=== PATIENT | female | born 1935 | race Caucasian/White ===

== ENCOUNTER 2016-11-30 14:21 | Inpatient (IN) | payer OTHER ==
[~2016-11-30] VITALS: Ht 157.5 cm; Wt 96.7 kg
[~2016-11-30 14:21] MED LIST: ACIDOPHILUS1 CA2 PO; ALBUD INH; AMITRIPTYLINE25 M1 PO; ANTIVERT/2525 MG PO; APAP/HYDROCODON1 T13 PO; ASPIR 8181 MG PO; ASPIR-LOW81 M1 PO; ATIVAN0.5 M1 PO; ATRUD INH; BACDS PO; BACLOFEN10 MG PO; BISOPROLOL/HCTZ1 TA1 PO; CALCIUM PO; CAR1 PO; CAR30 PO; CAR60 NG; CARAFATE1 GM PO; CAT0.1 PO; COL100 PO; DILTIAZEM30 M1 PO; DILTIAZEM60 M1 PO; ENDOCET1 TA4; FERRALET 901 TAB PO; FERROUS SULFAT325 M2 PO; FOL1 PO; FOLIC ACID1 MG PO; GABAPENTIN100 M2 PO; GENTAMICIN80 MG/101 IV; HYD25 PO; HYDRALAZINE HYD10 M1 PO; HYDROCODONE ACETA; IPRATROPIUM BROM3 M2 HHN; IPRATROPIUM BROM3 M2 INH; IRON SULFATE PO; K10 PO; KLOR-CON M2020 MEQ PO; LAC PO; LAC30L PO; LASIX40 MG PO; LEV500 PO; LEVOTHYROXIN0.025 M2 PO; LEVOTHYROXIN0.175 MG PO; LEVOTHYROXINE0.15 M2 PO; LIO10 PO; LIPI10 PO; LIPITOR80 MG PO; LISINOPRIL10 MG PO; LOP50 PO; LOSARTAN POTASS50 M1 PO; MAG PO; MAGNESIUM OXID400 MG PO; MELOXICAM15 M1 PO; MEROPENEM500 MG IV; METFORMIN HCL850 MG PO; METOPROLOL SUCC25 M1 PO; METOPROLOL TART25 M1 PO; MIRUD PO; MOR2I IV; MP PO; NEU300 PO; NORCO1 TA2 PO; OMEPRAZOLE DR20 M1 PO; PANTOPRAZOLE SO40 M1 PO; PHE25 PO; PHE25I IV; POTASSIUM CHLO20 ME1 PO; PRI20 PO; PRO40 PO; PROTONIX40 MG PO; PULMICORT0.5 MG/2 M IH; PULMICORT0.5 MG/2 M NEB; REGLAN10 MG PO; ROBDML PO; ROBL; SOD1 PO; SYN1 PO; SYN125 PO; THERAGRAN-M1 TA4 PO; TOP50 PO; TRE400 PO; TYL325 PO; ULT50 PO; XAN25 PO; XAN5 PO; XANAX0.5 MG PO; XARELTO10 M1 PO; XARELTO15 M1 PO; XOP1.25 HHN; XOPENEX1.25 MG/3 IH; ZOC20 PO; ZOCOR20 MG PO; ZOF4; ZOF4 PO; ZOFI IV; ZOS3I IV; ZOS3PM IV; [UNRECOGNIZED DRUG - CODE] PO
[2016-11-30 15:15] LABS: BASOPHIL % 0.2 % (0-2); PLATELET COUNT 184 x10^3mcL (130-400)
[2016-11-30] MEDS ORDERED: DILTIAZEM HCL120 M2 PO (15:15)
[2016-11-30] MEDS ORDERED: PRE20 PO (15:15)
[2016-11-30] MEDS ORDERED: LASIX20 MG PO (15:15)
[2016-11-30] MEDS ORDERED: MECLIZINE HYDRO25 M1 PO (15:16)
[2016-11-30] MEDS ORDERED: LAXATIVE5 MG PO (15:16)
[2016-11-30 15:27] LABS: CARBON DIOXIDE 39.5 mmol/L (21-32); CHLORIDE SERUM 96 mmol/L (98-107); CREATININE SERUM 0.8 mg/dL (0.6-1.0); GLUCOSE SERUM 157 mg/dL (74-106); POTASSIUM SERUM 3.6 mmol/L (3.5-5.1); RED CELL DISTRIBUTION WIDTH 17.7 % (11.5-14.5); SODIUM SERUM 138 mmol/L (136-145)
[2016-11-30 15:30] LABS: ALBUMIN 3.4 g/dL (3.4-5.0); ALKALINE PHOSPHATASE 87 U/L (46-116); ALT/SGPT 79 U/L (14-59); AST/SGOT 28 U/L (15-37); BILIRUBIN TOTAL 0.5 mg/dL (0.20-1.00); LIPASE 104 IU/L (73-393); TOTAL PROTEIN, SERUM 6.8 g/dL (6.4-8.2)
[2016-11-30 17:45] LABS: PHOSPHOROUS 3.9 mg/dL (2.5-4.9)
[2016-11-30 17:48] LABS: CHOLESTEROL/HDL RATIO 1.7
[2016-11-30 17:55] LABS: T3 TOTAL 0.48 ng/mL
[2016-11-30 18:00] LABS: FREE T4 0.99 ng/dL (0.76-1.46); FREE THYROXINE INDEX 2.2 ug/dL (1.4-4.5)
[2016-11-30 18:28] VITALS: BP 162/90
[2016-11-30 19:40] VITALS: BP 157/99
[2016-11-30 20:29] VITALS: BP 157/99
[2016-12-01 00:07] LABS: microscopic required? YES; urine erythrocyte TRACE (NEGATIVE)
[2016-12-01 04:45] VITALS: BP 185/105
[2016-12-01 06:23] VITALS: BP 157/94
[2016-12-01 08:00] VITALS: BP 150/103
[2016-12-01 08:25] LABS: PLATELET COUNT 181 x10^3mcL (130-400)
[2016-12-01 08:40] LABS: BASOPHIL % 0 % (0-2); RED CELL DISTRIBUTION WIDTH 17.9 % (11.5-14.5)
[2016-12-01 09:22] LABS: CALCIUM 7.9 mg/dL (8.5-10.1); CARBON DIOXIDE 38.1 mmol/L (21-32); CHLORIDE SERUM 91 mmol/L (98-107); CREATININE SERUM 0.7 mg/dL (0.6-1.0); GLUCOSE SERUM 139 mg/dL (74-106); MAGNESIUM 1.6 mg/dL (1.8-2.4); PHOSPHOROUS 4.9 mg/dL (2.5-4.9); POTASSIUM SERUM 3.7 mmol/L (3.5-5.1); SODIUM SERUM 136 mmol/L (136-145)
[2016-12-01 13:10] VITALS: BP 116/70
[2016-12-01 16:36] VITALS: Ht 157.5 cm; Wt 96.7 kg
[2016-12-01 18:19] VITALS: BP 120/70
[2016-12-01 21:09] VITALS: BP 157/84
[2016-12-02 06:00] LABS: PLATELET COUNT 164 x10^3mcL (130-400)
[2016-12-02 06:13] VITALS: BP 151/90
[2016-12-02 06:18] LABS: CALCIUM 7.7 mg/dL (8.5-10.1); CARBON DIOXIDE 39.5 mmol/L (21-32); CHLORIDE SERUM 93 mmol/L (98-107); CREATININE SERUM 0.8 mg/dL (0.6-1.0); GLUCOSE SERUM 110 mg/dL (74-106); MAGNESIUM 2.1 mg/dL (1.8-2.4); PHOSPHOROUS 4.6 mg/dL (2.5-4.9); POTASSIUM SERUM 3.9 mmol/L (3.5-5.1); SODIUM SERUM 135 mmol/L (136-145)
[2016-12-02 06:26] LABS: RED CELL DISTRIBUTION WIDTH 17.7 % (11.5-14.5)
[2016-12-02 08:29] LABS: BAND NEUTROPHIL 2 % (0-10); BASOPHIL 0 % (0-2); MONOCYTE 18 % (0-7); SEGMENTED NEUTROPHILS 69 % (37-75)
[2016-12-02 08:30] LABS: rbc morphology (normal/abnorm) ABNORMAL (NORMAL)
[2016-12-02 09:58] VITALS: BP 123/80
[2016-12-02 13:36] VITALS: BP 105/66
[2016-12-02 17:02] VITALS: BP 127/81
[2016-12-02 21:23] VITALS: BP 121/61
[2016-12-03 06:11] VITALS: BP 103/59
[2016-12-03 09:16] VITALS: BP 92/45
[2016-12-03 13:38] VITALS: BP 96/51
[2016-12-03 17:37] VITALS: BP 89/47
[2016-12-03 19:00] VITALS: BP 117/74
[2016-12-03 21:41] VITALS: BP 130/52
[2016-12-04 05:42] VITALS: BP 98/60
[2016-12-04 06:34] LABS: PLATELET COUNT 134 x10^3mcL (130-400)
[2016-12-04 06:47] LABS: BASOPHIL % 0 % (0-2); RED CELL DISTRIBUTION WIDTH 17.8 % (11.5-14.5)
[2016-12-04 06:50] LABS: CALCIUM 7.8 mg/dL (8.5-10.1); CARBON DIOXIDE 35.5 mmol/L (21-32); CHLORIDE SERUM 93 mmol/L (98-107); CREATININE SERUM 0.7 mg/dL (0.6-1.0); GLUCOSE SERUM 94 mg/dL (74-106); POTASSIUM SERUM 3.6 mmol/L (3.5-5.1); SODIUM SERUM 135 mmol/L (136-145)
[2016-12-04 09:58] VITALS: BP 113/50
[2016-12-04 11:31] VITALS: BP 113/50
[2016-12-04] MEDS ORDERED: LEVAQUIN750 MG PO (11:33)
[2016-12-04] MEDS ORDERED: CLINDAMYCIN HC300 MG PO (11:34)
[2016-12-04] MEDS ORDERED: BACO TOP (11:35)
[2016-12-04] MEDS ORDERED: HIBICLENS118 ML TOP (11:35)
[2016-12-04] MEDS ORDERED: XARELTO15 M1 PO (11:36)
[2016-12-04] MEDS ORDERED: LAC PO (11:36)
[2016-12-04] MEDS ORDERED: MAC100 PO (11:38)
[2016-12-04 11:39] VITALS: BP 113/50
[2016-12-04 11:49] VITALS: BP 113/50
== END 2016-12-04 13:15 | disposition home health service (06) | DRG 177 ==
LOC: ED 14:21 → DU 17:12
PROVIDERS: Emergency Medicine; Family Medicine; ADMIT Family Medicine
DX: J69.0 Pneumonitis due to inhalation of food and vomit (principal); N17.0 Acute kidney failure with tubular necrosis; N39.0 Urinary tract infection, site not specified; I42.9 Cardiomyopathy, unspecified; I48.92 Unspecified atrial flutter; I48.2 Chronic atrial fibrillation; F41.8 Other specified anxiety disorders; E03.9 Hypothyroidism, unspecified; K21.9 Gastro-esophageal reflux disease without esophagitis; M06.9 Rheumatoid arthritis, unspecified; M19.90 Unspecified osteoarthritis, unspecified site; I27.2 Other secondary pulmonary hypertension; E66.9 Obesity, unspecified; E78.5 Hyperlipidemia, unspecified; G89.29 Other chronic pain; M54.6 Pain in thoracic spine; M54.5 Low back pain; Z99.3 Dependence on wheelchair; Z68.39 Body mass index [BMI] 39.0-39.9, adult; I73.9 Peripheral vascular disease, unspecified; K27.9 Peptic ulcer, site unspecified, unspecified as acute or chronic, without hemorrhage or perforation
CPT/HCPCS: 83880; 84439; 97110-GP; J0696; J1644; J1940; J1956; J2270; J2405; J2920; J3490; J7030; J7620; J7633; J8597; Q0092

== ENCOUNTER 2017-01-03 14:24 | Inpatient (IN) | payer OTHER ==
[~2017-01-03] VITALS: Ht 152.4 cm; Wt 103.4 kg
[~2017-01-03 14:24] MED LIST changes: +BACO TOP; +CLINDAMYCIN HC300 MG PO; +DILTIAZEM HCL120 M2 PO; +HIBICLENS118 ML TOP; +LASIX20 MG PO; +LAXATIVE5 MG PO; +LEVAQUIN750 MG PO; +MAC100 PO; +MECLIZINE HYDRO25 M1 PO; +PRE20 PO
[2017-01-03 15:38] LABS: CALCIUM 7.6 mg/dL (8.5-10.1); CARBON DIOXIDE 37.6 mmol/L (21-32); CHLORIDE SERUM 95 mmol/L (98-107); CREATININE SERUM 0.6 mg/dL (0.6-1.0); GLUCOSE SERUM 90 mg/dL (74-106); POTASSIUM SERUM 3.4 mmol/L (3.5-5.1); SODIUM SERUM 139 mmol/L (136-145)
[2017-01-03 15:42] LABS: ALKALINE PHOSPHATASE 125 U/L (46-116); ALT/SGPT 23 U/L (14-59); AST/SGOT 30 U/L (15-37); BILIRUBIN TOTAL 0.4 mg/dL (0.20-1.00); TOTAL PROTEIN, SERUM 6.2 g/dL (6.4-8.2)
[2017-01-03 15:45] LABS: ALBUMIN 2.6 g/dL (3.4-5.0)
[2017-01-03 15:48] LABS: PLATELET COUNT 205 x10^3mcL (130-400); RED CELL DISTRIBUTION WIDTH 17.6 % (11.5-14.5)
[2017-01-03 16:14] LABS: BAND NEUTROPHIL 0 % (0-10); BASOPHIL 0 % (0-2); MONOCYTE 27 % (0-7)
[2017-01-03 16:16] LABS: PLATELET MORPHOLOGY PLATELETS NORMAL; SEGMENTED NEUTROPHILS 56 % (37-75)
[2017-01-03 16:18] LABS: PATH REVIEW for HEMA YES
[2017-01-03 16:45] LABS: T4(THYROXINE) 7.3 ug/dL (4.7-13.3)
[2017-01-03 17:46] VITALS: BP 133/86
[2017-01-03 18:02] LABS: microscopic required? YES; urine erythrocyte 3+ (NEGATIVE)
[2017-01-03 18:07] VITALS: BP 141/99
[2017-01-03 18:22] LABS: AMYLASE 46 U/L (25-115); LIPASE 67 IU/L (73-393)
[2017-01-03 22:56] VITALS: BP 139/90
[2017-01-04 06:12] LABS: PLATELET COUNT 168 x10^3mcL (130-400)
[2017-01-04 06:51] LABS: CALCIUM 7.6 mg/dL (8.5-10.1); CARBON DIOXIDE 31.4 mmol/L (21-32); CHLORIDE SERUM 101 mmol/L (98-107); CREATININE SERUM 0.5 mg/dL (0.6-1.0); GLUCOSE SERUM 88 mg/dL (74-106); MAGNESIUM 1.5 mg/dL (1.8-2.4); PHOSPHOROUS 4.7 mg/dL (2.5-4.9); POTASSIUM SERUM 3.7 mmol/L (3.5-5.1); SODIUM SERUM 140 mmol/L (136-145)
[2017-01-04 06:56] VITALS: BP 136/90
[2017-01-04 07:13] LABS: RED CELL DISTRIBUTION WIDTH 17.3 % (11.5-14.5)
[2017-01-04 07:55] VITALS: BP 136/91
[2017-01-04 09:00] VITALS: BP 136/91
[2017-01-04 10:30] LABS: BAND NEUTROPHIL 2 % (0-10); BASOPHIL 0 % (0-2); MONOCYTE 26 % (0-7); SEGMENTED NEUTROPHILS 49 % (37-75)
[2017-01-04 10:32] LABS: rbc morphology (normal/abnorm) ABNORMAL (NORMAL)
[2017-01-04 16:13] VITALS: BP 127/82
[2017-01-04 22:12] VITALS: BP 124/67
[2017-01-05 06:18] VITALS: BP 108/66
[2017-01-05 06:20] LABS: PLATELET COUNT 172 x10^3mcL (130-400)
[2017-01-05 06:27] LABS: CALCIUM 7.8 mg/dL (8.5-10.1); CARBON DIOXIDE 36.4 mmol/L (21-32); CHLORIDE SERUM 99 mmol/L (98-107); CREATININE SERUM 0.6 mg/dL (0.6-1.0); GLUCOSE SERUM 89 mg/dL (74-106); MAGNESIUM 1.5 mg/dL (1.8-2.4); PHOSPHOROUS 4.6 mg/dL (2.5-4.9); POTASSIUM SERUM 3.1 mmol/L (3.5-5.1); SODIUM SERUM 141 mmol/L (136-145)
[2017-01-05 06:29] LABS: RED CELL DISTRIBUTION WIDTH 16.9 % (11.5-14.5)
[2017-01-05 07:23] LABS: BAND NEUTROPHIL 1 % (0-10); MONOCYTE 29 % (0-7); SEGMENTED NEUTROPHILS 54 % (37-75); rbc morphology (normal/abnorm) NORMAL (NORMAL)
[2017-01-05 14:00] VITALS: BP 117/65
[2017-01-05 17:27] VITALS: BP 115/74
[2017-01-05 21:58] VITALS: BP 120/74
[2017-01-06 06:02] VITALS: BP 108/70
[2017-01-06 06:25] LABS: PLATELET COUNT 172 x10^3mcL (130-400)
[2017-01-06 06:30] LABS: CALCIUM 8.1 mg/dL (8.5-10.1); CHLORIDE SERUM 98 mmol/L (98-107); CREATININE SERUM 0.5 mg/dL (0.6-1.0); GLUCOSE SERUM 95 mg/dL (74-106); MAGNESIUM 1.9 mg/dL (1.8-2.4); PHOSPHOROUS 4.1 mg/dL (2.5-4.9); SODIUM SERUM 140 mmol/L (136-145)
[2017-01-06 07:32] LABS: RED CELL DISTRIBUTION WIDTH 16.7 % (11.5-14.5)
[2017-01-06 08:47] LABS: BAND NEUTROPHIL 0 % (0-10); BASOPHIL 0 % (0-2); SEGMENTED NEUTROPHILS 50 % (37-75)
[2017-01-06 08:49] LABS: MONOCYTE 27 % (0-7)
[2017-01-06 08:52] LABS: rbc morphology (normal/abnorm) ABNORMAL (NORMAL)
[2017-01-06 09:18] VITALS: Ht 152.4 cm; Wt 103.4 kg
[2017-01-06 09:23] VITALS: BP 94/64
[2017-01-06 14:45] VITALS: BP 116/73
[2017-01-06 17:35] VITALS: BP 122/70
[2017-01-06 18:12] VITALS: BP 122/70
[2017-01-06 22:41] VITALS: BP 111/59
[2017-01-07 05:40] VITALS: BP 96/55
[2017-01-07 10:06] VITALS: BP 143/57
[2017-01-07 12:54] LABS: PLATELET COUNT 177 x10^3mcL (130-400)
[2017-01-07 12:58] LABS: RED CELL DISTRIBUTION WIDTH 15.9 % (11.5-14.5)
[2017-01-07 13:01] LABS: CALCIUM 8.6 mg/dL (8.5-10.1); CARBON DIOXIDE 35.1 mmol/L (21-32); CHLORIDE SERUM 97 mmol/L (98-107); CREATININE SERUM 0.6 mg/dL (0.6-1.0); GLUCOSE SERUM 108 mg/dL (74-106); MAGNESIUM 1.7 mg/dL (1.8-2.4); PHOSPHOROUS 4.6 mg/dL (2.5-4.9); SODIUM SERUM 137 mmol/L (136-145)
[2017-01-07 13:05] LABS: POTASSIUM SERUM 2.8 mmol/L (3.5-5.1)
[2017-01-07 13:09] LABS: BAND NEUTROPHIL 0 % (0-10); BASOPHIL 0 % (0-2); MONOCYTE 20 % (0-7); SEGMENTED NEUTROPHILS 57 % (37-75)
[2017-01-07 13:10] LABS: rbc morphology (normal/abnorm) ABNORMAL (NORMAL)
[2017-01-07 14:02] VITALS: BP 114/69
[2017-01-07 21:04] VITALS: BP 115/61
[2017-01-08 06:20] VITALS: BP 112/68
[2017-01-08 06:51] LABS: PLATELET COUNT 158 x10^3mcL (130-400)
[2017-01-08 07:04] LABS: RED CELL DISTRIBUTION WIDTH 15.9 % (11.5-14.5)
[2017-01-08 07:13] LABS: CALCIUM 8.2 mg/dL (8.5-10.1); CARBON DIOXIDE 31.8 mmol/L (21-32); CHLORIDE SERUM 98 mmol/L (98-107); CREATININE SERUM 0.6 mg/dL (0.6-1.0); GLUCOSE SERUM 101 mg/dL (74-106); MAGNESIUM 2.1 mg/dL (1.8-2.4); PHOSPHOROUS 4.6 mg/dL (2.5-4.9); POTASSIUM SERUM 3.4 mmol/L (3.5-5.1); SODIUM SERUM 138 mmol/L (136-145)
[2017-01-08 08:58] VITALS: BP 118/76
[2017-01-08 10:20] LABS: BAND NEUTROPHIL 0 % (0-10); BASOPHIL 0 % (0-2); MONOCYTE 20 % (0-7); SEGMENTED NEUTROPHILS 54 % (37-75); rbc morphology (normal/abnorm) ABNORMAL (NORMAL)
[2017-01-08 12:58] VITALS: BP 109/68
[2017-01-08] MEDS ORDERED: BEN25 PO (14:16)
[2017-01-08] MEDS ORDERED: BACDS PO (14:18)
[2017-01-08] MEDS ORDERED: LEVAQUIN750 MG PO (14:18)
[2017-01-08] MEDS ORDERED: ECO81 PO (14:19)
[2017-01-08] MEDS ORDERED: SIN25 PO (14:20)
[2017-01-08] MEDS ORDERED: LAC PO (14:21)
[2017-01-08] MEDS ORDERED: MYCC TOP (14:23)
[2017-01-08 14:29] VITALS: BP 109/68
== END 2017-01-08 16:26 | disposition home health service (06) | DRG 190 ==
LOC: ED 14:24 → DU 16:23
PROVIDERS: Emergency Medicine; Family Medicine; ADMIT Family Medicine
DX: J44.1 Chronic obstructive pulmonary disease with (acute) exacerbation (principal); N17.0 Acute kidney failure with tubular necrosis; E43 Unspecified severe protein-calorie malnutrition; J96.20 Acute and chronic respiratory failure, unspecified whether with hypoxia or hypercapnia; I50.43 Acute on chronic combined systolic (congestive) and diastolic (congestive) heart failure; R53.2 Functional quadriplegia; Z68.41 Body mass index [BMI] 40.0-44.9, adult; N39.0 Urinary tract infection, site not specified; L03.211 Cellulitis of face; I42.9 Cardiomyopathy, unspecified; M94.0 Chondrocostal junction syndrome [Tietze]; K21.9 Gastro-esophageal reflux disease without esophagitis; B96.1 Klebsiella pneumoniae [K. pneumoniae] as the cause of diseases classified elsewhere; I27.2 Other secondary pulmonary hypertension; Z16.24 Resistance to multiple antibiotics; E83.51 Hypocalcemia; E03.9 Hypothyroidism, unspecified; E66.01 Morbid (severe) obesity due to excess calories; E78.5 Hyperlipidemia, unspecified; E86.0 Dehydration; I48.2 Chronic atrial fibrillation; F41.8 Other specified anxiety disorders; M19.90 Unspecified osteoarthritis, unspecified site; M06.9 Rheumatoid arthritis, unspecified; Z99.3 Dependence on wheelchair; Z99.81 Dependence on supplemental oxygen; Z79.01 Long term (current) use of anticoagulants
CPT/HCPCS: 83880; 85060; J1885; J1940; J1956; J3475; J3480; J7030; J7050; J7620; J7626; Q0092; Q0163

== ENCOUNTER 2017-01-25 09:22 | Inpatient (IN) | payer OTHER ==
[~2017-01-25] VITALS: Ht 2.5 cm; Wt 103.0 kg
[~2017-01-25 09:22] MED LIST changes: +BEN25 PO; +ECO81 PO; +MYCC TOP; +SIN25 PO
[2017-01-25] MEDS ORDERED: CARDIZEM30 MG PO (09:54)
[2017-01-25] MEDS ORDERED: MECLIZINE HYDRO25 M1 PO (09:57)
[2017-01-25] MEDS ORDERED: WAL-DRYL25 MG PO (09:58)
[2017-01-25] MEDS ORDERED: METOPROLOL TART25 M1 PO (09:59)
[2017-01-25] MEDS ORDERED: FERROUS SULFAT325 M2 PO (10:10)
[2017-01-25 10:28] LABS: RED CELL DISTRIBUTION WIDTH 14.2 % (11.5-14.5)
[2017-01-25 10:48] LABS: CALCIUM 7.4 mg/dL (8.5-10.1); CARBON DIOXIDE 26.7 mmol/L (21-32); CHLORIDE SERUM 95 mmol/L (98-107); CREATININE SERUM 0.7 mg/dL (0.6-1.0); GLUCOSE SERUM 96 mg/dL (74-106); POTASSIUM SERUM 3.8 mmol/L (3.5-5.1); SODIUM SERUM 131 mmol/L (136-145)
[2017-01-25 10:50] LABS: PLATELET COUNT 120 x10^3mcL (130-400)
[2017-01-25 10:53] LABS: ALBUMIN 2.7 g/dL (3.4-5.0); ALKALINE PHOSPHATASE 334 U/L (46-116); ALT/SGPT 449 U/L (14-59); AST/SGOT 717 U/L (15-37); TOTAL PROTEIN, SERUM 5.8 g/dL (6.4-8.2)
[2017-01-25 11:18] LABS: BAND NEUTROPHIL 16 % (0-10); BASOPHIL 0 % (0-2); MONOCYTE 10 % (0-7); MYELOCYTE 1 % (0-2); SEGMENTED NEUTROPHILS 72 % (37-75)
[2017-01-25 11:19] LABS: PLATELET MORPHOLOGY PLATELETS DECREASED; rbc morphology (normal/abnorm) ABNORMAL (NORMAL)
[2017-01-25 11:47] LABS: UA SPECIFIC GRAVITY <=1.005 (1.005-1.035); microscopic required? YES; urine erythrocyte 3+ (NEGATIVE)
[2017-01-25 12:42] LABS: MAGNESIUM 1.4 mg/dL (1.8-2.4); PHOSPHOROUS 3.3 mg/dL (2.5-4.9)
[2017-01-25 12:43] LABS: CHOLESTEROL/HDL RATIO 1.3
[2017-01-25 12:52] LABS: FREE T4 1.25 ng/dL (0.76-1.46); FREE THYROXINE INDEX 2.4 ug/dL (1.4-4.5); T4(THYROXINE) 6.5 ug/dL (4.7-13.3)
[2017-01-25 12:56] LABS: T3 TOTAL 0.52 ng/mL
[2017-01-25 13:39] VITALS: BP 104/50
[2017-01-25] MEDS ORDERED: METOPROLOL SUCC25 M2 PO (14:31)
[2017-01-25 17:09] VITALS: BP 104/50
[2017-01-25 17:39] VITALS: BP 102/43
[2017-01-25 21:18] VITALS: BP 119/55
[2017-01-26 05:39] VITALS: BP 113/63
[2017-01-26 06:20] LABS: ALKALINE PHOSPHATASE 260 U/L (46-116); ALT/SGPT 278 U/L (14-59); AST/SGOT 310 U/L (15-37); BILIRUBIN DIRECT 1.69 mg/dL (0.0-0.2); BILIRUBIN TOTAL 2.1 mg/dL (0.20-1.00); CARBON DIOXIDE 29.3 mmol/L (21-32); CHLORIDE SERUM 99 mmol/L (98-107); CREATININE SERUM 0.6 mg/dL (0.6-1.0); GLUCOSE SERUM 83 mg/dL (74-106); POTASSIUM SERUM 4.3 mmol/L (3.5-5.1); SODIUM SERUM 132 mmol/L (136-145)
[2017-01-26 06:25] LABS: ALBUMIN 2.5 g/dL (3.4-5.0); TOTAL PROTEIN, SERUM 5.4 g/dL (6.4-8.2)
[2017-01-26 07:21] LABS: PLATELET COUNT 99 x10^3mcL (130-400); RED CELL DISTRIBUTION WIDTH 14.7 % (11.5-14.5)
[2017-01-26 08:50] LABS: BAND NEUTROPHIL 20 % (0-10); BASOPHIL 0 % (0-2); MONOCYTE 16 % (0-7); SEGMENTED NEUTROPHILS 59 % (37-75); rbc morphology (normal/abnorm) ABNORMAL (NORMAL)
[2017-01-26 08:51] LABS: PLATELET MORPHOLOGY PLATELETS DECREASED
[2017-01-26 09:00] VITALS: BP 129/67
[2017-01-26 12:27] VITALS: BP 136/70
[2017-01-26 18:01] VITALS: BP 112/53
[2017-01-26 22:09] VITALS: BP 117/68
[2017-01-27 05:52] VITALS: BP 121/64
[2017-01-27 05:58] LABS: RED CELL DISTRIBUTION WIDTH 14.4 % (11.5-14.5)
[2017-01-27 06:30] LABS: CARBON DIOXIDE 28.2 mmol/L (21-32); CHLORIDE SERUM 99 mmol/L (98-107); CREATININE SERUM 0.6 mg/dL (0.6-1.0); GLUCOSE SERUM 103 mg/dL (74-106); POTASSIUM SERUM 3.8 mmol/L (3.5-5.1); SODIUM SERUM 134 mmol/L (136-145)
[2017-01-27 07:24] LABS: PLATELET COUNT 104 x10^3mcL (130-400)
[2017-01-27 08:22] LABS: BAND NEUTROPHIL 6 % (0-10); BASOPHIL 0 % (0-2); MONOCYTE 18 % (0-7); SEGMENTED NEUTROPHILS 66 % (37-75)
[2017-01-27 08:24] LABS: PLATELET MORPHOLOGY GIANT PLATELET SEEN; rbc morphology (normal/abnorm) ABNORMAL (NORMAL)
[2017-01-27 09:48] VITALS: BP 105/52
[2017-01-27 17:06] VITALS: BP 124/62
[2017-01-27 21:45] VITALS: BP 131/73
[2017-01-28 06:37] LABS: BASOPHIL % 0.3 % (0-2); RED CELL DISTRIBUTION WIDTH 14.3 % (11.5-14.5)
[2017-01-28 06:54] VITALS: BP 125/59
[2017-01-28 06:56] LABS: PLATELET COUNT 110 x10^3mcL (130-400)
[2017-01-28 06:59] LABS: ALKALINE PHOSPHATASE 224 U/L (46-116); ALT/SGPT 150 U/L (14-59); AST/SGOT 127 U/L (15-37); BILIRUBIN TOTAL 0.8 mg/dL (0.20-1.00); CALCIUM 7.9 mg/dL (8.5-10.1); CARBON DIOXIDE 34.3 mmol/L (21-32); CHLORIDE SERUM 98 mmol/L (98-107); CREATININE SERUM 0.5 mg/dL (0.6-1.0); GLUCOSE SERUM 95 mg/dL (74-106); SODIUM SERUM 138 mmol/L (136-145)
[2017-01-28 07:43] LABS: ALBUMIN 2.2 g/dL (3.4-5.0); POTASSIUM SERUM 2.8 mmol/L (3.5-5.1); TOTAL PROTEIN, SERUM 5.3 g/dL (6.4-8.2)
[2017-01-28 10:15] VITALS: BP 107/59
[2017-01-28 14:19] VITALS: BP 120/64
[2017-01-28 18:41] VITALS: BP 99/42
[2017-01-28 19:30] VITALS: BP 112/60
[2017-01-28 21:53] VITALS: BP 125/72
[2017-01-29 06:14] LABS: BASOPHIL % 0.4 % (0-2)
[2017-01-29 06:43] LABS: PLATELET COUNT 122 x10^3mcL (130-400); RED CELL DISTRIBUTION WIDTH 14.7 % (11.5-14.5)
[2017-01-29 07:01] VITALS: BP 135/65
[2017-01-29 07:09] LABS: CALCIUM 8.1 mg/dL (8.5-10.1); CARBON DIOXIDE 33.6 mmol/L (21-32); CHLORIDE SERUM 101 mmol/L (98-107); CREATININE SERUM 0.4 mg/dL (0.6-1.0); GLUCOSE SERUM 100 mg/dL (74-106); MAGNESIUM 1.3 mg/dL (1.8-2.4); PHOSPHOROUS 2.9 mg/dL (2.5-4.9); POTASSIUM SERUM 3.8 mmol/L (3.5-5.1); SODIUM SERUM 139 mmol/L (136-145)
[2017-01-29 09:46] VITALS: BP 144/76
[2017-01-29 13:52] VITALS: BP 121/68
[2017-01-29 17:33] VITALS: BP 141/75
[2017-01-29 19:30] VITALS: BP 127/61
[2017-01-29 21:24] VITALS: BP 153/76
[2017-01-30 05:49] VITALS: BP 136/62
[2017-01-30 06:23] LABS: RED CELL DISTRIBUTION WIDTH 14.5 % (11.5-14.5)
[2017-01-30 06:50] LABS: CALCIUM 8.4 mg/dL (8.5-10.1); CARBON DIOXIDE 35.4 mmol/L (21-32); CHLORIDE SERUM 97 mmol/L (98-107); CREATININE SERUM 0.5 mg/dL (0.6-1.0); GLUCOSE SERUM 103 mg/dL (74-106); PHOSPHOROUS 2.9 mg/dL (2.5-4.9); POTASSIUM SERUM 3.6 mmol/L (3.5-5.1); SODIUM SERUM 137 mmol/L (136-145)
[2017-01-30 06:54] LABS: PLATELET COUNT 126 x10^3mcL (130-400)
[2017-01-30 08:30] LABS: MAGNESIUM 1.9 mg/dL (1.8-2.4)
[2017-01-30 08:57] LABS: BAND NEUTROPHIL 4 % (0-10); BASOPHIL 0 % (0-2); METAMYELOCTE 1 % (0-2); MONOCYTE 26 % (0-7); MYELOCYTE 2 % (0-2); PLATELET MORPHOLOGY GIANT PLATELET SEEN; SEGMENTED NEUTROPHILS 55 % (37-75); rbc morphology (normal/abnorm) ABNORMAL (NORMAL)
[2017-01-30 09:25] VITALS: BP 135/75
[2017-01-30 18:55] VITALS: BP 142/84
[2017-01-30 22:13] VITALS: BP 142/76
[2017-01-31 06:32] VITALS: BP 133/61
[2017-01-31 06:35] LABS: PLATELET COUNT 140 x10^3mcL (130-400)
[2017-01-31 06:48] LABS: CALCIUM 8.1 mg/dL (8.5-10.1); CARBON DIOXIDE 34.2 mmol/L (21-32); CHLORIDE SERUM 102 mmol/L (98-107); CREATININE SERUM 0.4 mg/dL (0.6-1.0); GLUCOSE SERUM 101 mg/dL (74-106); POTASSIUM SERUM 3.9 mmol/L (3.5-5.1); SODIUM SERUM 141 mmol/L (136-145)
[2017-01-31 07:40] VITALS: BP 129/68
[2017-01-31 07:56] LABS: RED CELL DISTRIBUTION WIDTH 14.7 % (11.5-14.5)
[2017-01-31 09:27] LABS: BILIRUBIN DIRECT 0.28 mg/dL (0.0-0.2); BILIRUBIN TOTAL 0.44 mg/dL (0.20-1.00)
[2017-01-31 09:28] LABS: ALBUMIN 2.2 g/dL (3.4-5.0); TOTAL PROTEIN, SERUM 5.8 g/dL (6.4-8.2)
[2017-01-31 11:07] LABS: BAND NEUTROPHIL 3 % (0-10); BASOPHIL 0 % (0-2); MONOCYTE 13 % (0-7); MYELOCYTE 2 % (0-2); SEGMENTED NEUTROPHILS 70 % (37-75)
[2017-01-31 11:09] LABS: PLATELET MORPHOLOGY PLATELETS DECREASED; rbc morphology (normal/abnorm) ABNORMAL (NORMAL)
[2017-01-31 13:00] VITALS: BP 128/59
[2017-01-31 18:06] VITALS: BP 149/65
[2017-01-31 21:35] VITALS: BP 102/55
[2017-02-01 06:16] LABS: CALCIUM 7.8 mg/dL (8.5-10.1); CHLORIDE SERUM 102 mmol/L (98-107); CREATININE SERUM 0.4 mg/dL (0.6-1.0); GLUCOSE SERUM 98 mg/dL (74-106); POTASSIUM SERUM 3.9 mmol/L (3.5-5.1); SODIUM SERUM 142 mmol/L (136-145)
[2017-02-01 06:21] LABS: PLATELET COUNT 171 x10^3mcL (130-400)
[2017-02-01 06:55] VITALS: BP 111/66
[2017-02-01 07:42] LABS: RED CELL DISTRIBUTION WIDTH 15.4 % (11.5-14.5)
[2017-02-01 09:26] VITALS: BP 118/70
[2017-02-01 10:09] LABS: ATYPICAL LYMPH 1 %; BAND NEUTROPHIL 1 % (0-10); BASOPHIL 0 % (0-2); MONOCYTE 14 % (0-7); SEGMENTED NEUTROPHILS 71 % (37-75)
[2017-02-01 10:10] LABS: rbc morphology (normal/abnorm) ABNORMAL (NORMAL)
[2017-02-01 10:11] LABS: PLATELET MORPHOLOGY PLATELETS DECREASED
[2017-02-01 13:36] VITALS: BP 118/70
[2017-02-01 13:45] VITALS: BP 138/67
[2017-02-01] MEDS ORDERED: NORCO1 TA1 PO (14:03)
[2017-02-01] MEDS ORDERED: CARAFATE1 GM PO (14:03)
[2017-02-01 14:04] VITALS: BP 138/67
[2017-02-01] MEDS ORDERED: FERROUS SULFAT325 M2 PO (14:04)
[2017-02-01] MEDS ORDERED: COL100 PO (14:05)
[2017-02-01] MEDS ORDERED: XARELTO15 M1 PO (14:06)
== END 2017-02-01 17:52 | disposition home health service (06) | DRG 853 ==
LOC: ED 09:22 → MU 12:10 → DU 12:10 → MU 01-30 09:03
PROVIDERS: Emergency Medicine; Family Medicine; Internal Medicine Gastroenterology; ADMIT Family Medicine
PROC: 0FC98ZZ Extirpation of Matter from Common Bile Duct, Via Natural or Artificial Opening Endoscopic (ICD-10-PCS; 2017-01-26)
PROC: 0FC58ZZ Extirpation of Matter from Right Hepatic Duct, Via Natural or Artificial Opening Endoscopic (ICD-10-PCS; 2017-01-26)
PROC: 0FC68ZZ Extirpation of Matter from Left Hepatic Duct, Via Natural or Artificial Opening Endoscopic (ICD-10-PCS; 2017-01-26)
PROC: 0W3P8ZZ Control Bleeding in Gastrointestinal Tract, Via Natural or Artificial Opening Endoscopic (ICD-10-PCS; 2017-01-26 09:30)
PROC: 0F798ZZ Dilation of Common Bile Duct, Via Natural or Artificial Opening Endoscopic (ICD-10-PCS; 2017-01-26 09:30)
PROC: 0F758ZZ Dilation of Right Hepatic Duct, Via Natural or Artificial Opening Endoscopic (ICD-10-PCS; 2017-01-26 09:30)
PROC: 0F768ZZ Dilation of Left Hepatic Duct, Via Natural or Artificial Opening Endoscopic (ICD-10-PCS; 2017-01-26 09:30)
PROC: 0HBMXZZ Excision of Right Foot Skin, External Approach (ICD-10-PCS; principal; 2017-01-28)
PROC: 0HBNXZZ Excision of Left Foot Skin, External Approach (ICD-10-PCS; principal; 2017-01-28)
DX: A41.9 Sepsis, unspecified organism (principal); E43 Unspecified severe protein-calorie malnutrition; N17.0 Acute kidney failure with tubular necrosis; K28.0 Acute gastrojejunal ulcer with hemorrhage; E87.1 Hypo-osmolality and hyponatremia; N39.0 Urinary tract infection, site not specified; K91.86 Retained cholelithiasis following cholecystectomy; I42.0 Dilated cardiomyopathy; Z68.42 Body mass index [BMI] 45.0-49.9, adult; B96.20 Unspecified Escherichia coli [E. coli] as the cause of diseases classified elsewhere; R65.20 Severe sepsis without septic shock; I73.9 Peripheral vascular disease, unspecified; L97.529 Non-pressure chronic ulcer of other part of left foot with unspecified severity; L97.519 Non-pressure chronic ulcer of other part of right foot with unspecified severity; K80.50 Calculus of bile duct without cholangitis or cholecystitis without obstruction; K31.7 Polyp of stomach and duodenum; K29.60 Other gastritis without bleeding; K21.9 Gastro-esophageal reflux disease without esophagitis; I48.2 Chronic atrial fibrillation; I10 Essential (primary) hypertension; M06.9 Rheumatoid arthritis, unspecified; M19.90 Unspecified osteoarthritis, unspecified site; M54.6 Pain in thoracic spine; M54.5 Low back pain; G89.29 Other chronic pain; D53.9 Nutritional anemia, unspecified; F41.9 Anxiety disorder, unspecified; F32.9 Major depressive disorder, single episode, unspecified; E78.5 Hyperlipidemia, unspecified; E89.0 Postprocedural hypothyroidism; E66.01 Morbid (severe) obesity due to excess calories; Z16.12 Extended spectrum beta lactamase (ESBL) resistance; Z16.24 Resistance to multiple antibiotics; Z99.81 Dependence on supplemental oxygen; Z99.3 Dependence on wheelchair
CPT/HCPCS: 43235; 43260; 83880; 84439; 94150; C1769; C9113; J0696; J1170; J1885; J1940; J2185; J2270; J2405; J2543; J2704; J2916; J3475; J3480; J3490; J7030; J7040; J7050; J7120; J7613; J7620; Q0092; Q9967

== ENCOUNTER 2017-02-04 10:42 | Inpatient (IN) | payer OTHER ==
[~2017-02-04] VITALS: Ht 154.9 cm; Wt 98.9 kg
[~2017-02-04 10:42] MED LIST changes: +CARDIZEM30 MG PO; +METOPROLOL SUCC25 M2 PO; +NORCO1 TA1 PO; +WAL-DRYL25 MG PO
[2017-02-04 11:41] LABS: BASOPHIL % 0.2 % (0-2); PLATELET COUNT 245 x10^3mcL (130-400)
[2017-02-04 11:42] LABS: RED CELL DISTRIBUTION WIDTH 17.1 % (11.5-14.5)
[2017-02-04 12:31] LABS: CALCIUM 7.4 mg/dL (8.5-10.1); CARBON DIOXIDE 28.7 mmol/L (21-32); CHLORIDE SERUM 98 mmol/L (98-107); CREATININE SERUM 0.7 mg/dL (0.6-1.0); GLUCOSE SERUM 105 mg/dL (74-106); POTASSIUM SERUM 3.5 mmol/L (3.5-5.1); SODIUM SERUM 137 mmol/L (136-145)
[2017-02-04 12:35] LABS: ALBUMIN 2.6 g/dL (3.4-5.0); ALKALINE PHOSPHATASE 188 U/L (46-116); ALT/SGPT 49 U/L (14-59); AMYLASE 56 U/L (25-115); AST/SGOT 61 U/L (15-37); BILIRUBIN TOTAL 0.38 mg/dL (0.20-1.00); LIPASE 73 IU/L (73-393); TOTAL PROTEIN, SERUM 6.2 g/dL (6.4-8.2)
[2017-02-04 15:05] LABS: BASOPHIL % 0.1 % (0-2); PLATELET COUNT 243 x10^3mcL (130-400)
[2017-02-04 15:07] LABS: RED CELL DISTRIBUTION WIDTH 17.1 % (11.5-14.5)
[2017-02-04 15:55] LABS: UA SPECIFIC GRAVITY 1.015 (1.005-1.035); microscopic required? YES; urine erythrocyte 3+ (NEGATIVE)
[2017-02-04 15:58] VITALS: BP 122/62
[2017-02-04 16:28] LABS: T3 TOTAL 0.87 ng/mL
[2017-02-04 16:58] LABS: FREE T4 1.01 ng/dL (0.76-1.46); FREE THYROXINE INDEX 2.4 ug/dL (1.4-4.5)
[2017-02-04 17:13] LABS: CHOLESTEROL/HDL RATIO 2.6
[2017-02-04 17:51] VITALS: BP 142/49
[2017-02-04 19:26] LABS: BASOPHIL % 0.3 % (0-2); PLATELET COUNT 224 x10^3mcL (130-400)
[2017-02-04 19:30] LABS: RED CELL DISTRIBUTION WIDTH 17.5 % (11.5-14.5)
[2017-02-04 19:38] LABS: CALCIUM 6.9 mg/dL (8.5-10.1); CHLORIDE SERUM 99 mmol/L (98-107); CREATININE SERUM 0.6 mg/dL (0.6-1.0); GLUCOSE SERUM 101 mg/dL (74-106); POTASSIUM SERUM 3.5 mmol/L (3.5-5.1); SODIUM SERUM 137 mmol/L (136-145)
[2017-02-04 19:40] VITALS: BP 118/66
[2017-02-04 23:45] VITALS: BP 101/49
[2017-02-05] VITALS (7 sets, daily range): BP systolic 97–137; BP diastolic 49–77
[2017-02-05 01:00] LABS: PLATELET COUNT 229 x10^3mcL (130-400)
[2017-02-05 01:32] LABS: BAND NEUTROPHIL 5 % (0-10); METAMYELOCTE 8 % (0-2); MONOCYTE 7 % (0-7); MYELOCYTE 2 % (0-2); SEGMENTED NEUTROPHILS 64 % (37-75)
[2017-02-05 01:33] LABS: PLATELET MORPHOLOGY LARGE PLATELET SEEN; rbc morphology (normal/abnorm) ABNORMAL (NORMAL)
[2017-02-05 07:13] LABS: BASOPHIL % 0.5 % (0-2); PLATELET COUNT 230 x10^3mcL (130-400)
[2017-02-05 08:19] LABS: rbc morphology (normal/abnorm) ABNORMAL (NORMAL)
[2017-02-05 18:16] LABS: BASOPHIL % 0.3 % (0-2); PLATELET COUNT 219 x10^3mcL (130-400)
[2017-02-05 18:21] LABS: RED CELL DISTRIBUTION WIDTH 18.4 % (11.5-14.5)
[2017-02-06 03:39] VITALS: BP 101/58
[2017-02-06 05:32] LABS: BASOPHIL % 0.2 % (0-2); PLATELET COUNT 217 x10^3mcL (130-400)
[2017-02-06 05:34] LABS: RED CELL DISTRIBUTION WIDTH 18.1 % (11.5-14.5)
[2017-02-06 05:36] LABS: CALCIUM 6.8 mg/dL (8.5-10.1); CARBON DIOXIDE 31.4 mmol/L (21-32); CHLORIDE SERUM 103 mmol/L (98-107); CREATININE SERUM 0.5 mg/dL (0.6-1.0); GLUCOSE SERUM 106 mg/dL (74-106); MAGNESIUM 1.8 mg/dL (1.8-2.4); PHOSPHOROUS 3.4 mg/dL (2.5-4.9); POTASSIUM SERUM 3.5 mmol/L (3.5-5.1); SODIUM SERUM 140 mmol/L (136-145)
[2017-02-06 07:30] VITALS: Ht 154.9 cm; Wt 98.9 kg
[2017-02-06 08:10] VITALS: BP 94/52
[2017-02-06 11:45] VITALS: BP 114/72
[2017-02-06 17:06] VITALS: BP 107/56
[2017-02-06 20:47] VITALS: BP 101/64
[2017-02-07 06:26] VITALS: BP 112/70
[2017-02-07 07:00] LABS: PLATELET COUNT 202 x10^3mcL (130-400)
[2017-02-07 07:05] LABS: RED CELL DISTRIBUTION WIDTH 18.2 % (11.5-14.5)
[2017-02-07 07:10] LABS: CALCIUM 6.7 mg/dL (8.5-10.1); CARBON DIOXIDE 31.6 mmol/L (21-32); CHLORIDE SERUM 103 mmol/L (98-107); CREATININE SERUM 0.5 mg/dL (0.6-1.0); GLUCOSE SERUM 82 mg/dL (74-106); MAGNESIUM 1.7 mg/dL (1.8-2.4); PHOSPHOROUS 3.1 mg/dL (2.5-4.9); POTASSIUM SERUM 3.3 mmol/L (3.5-5.1); SODIUM SERUM 138 mmol/L (136-145)
[2017-02-07 10:04] VITALS: BP 113/73
[2017-02-07 11:34] LABS: BAND NEUTROPHIL 2 % (0-10); BASOPHIL 0 % (0-2); MONOCYTE 15 % (0-7); SEGMENTED NEUTROPHILS 63 % (37-75)
[2017-02-07 11:35] LABS: PLATELET MORPHOLOGY PLATELETS DECREASED; rbc morphology (normal/abnorm) ABNORMAL (NORMAL)
[2017-02-07 13:10] VITALS: BP 113/73
[2017-02-07 13:40] VITALS: BP 119/47
[2017-02-07 17:31] VITALS: BP 110/64
[2017-02-07] MEDS ORDERED: MAG PO (17:37)
== END 2017-02-07 21:25 | disposition hospice, home (50) | DRG 377 ==
LOC: ED 10:42 → DU 15:03 → IC 15:03 → DU 15:36 → IC 19:44 → DU 02-06 15:56
PROVIDERS: Emergency Medicine; ADMIT Family Medicine
PROC: 05HM33Z Insertion of Infusion Device into Right Internal Jugular Vein, Percutaneous Approach (ICD-10-PCS; principal; 2017-02-04)
PROC: B543ZZA Ultrasonography of Right Jugular Veins, Guidance (ICD-10-PCS; 2017-02-04)
PROC: 05HM33Z Insertion of Infusion Device into Right Internal Jugular Vein, Percutaneous Approach (ICD-10-PCS; 2017-02-05)
PROC: B543ZZA Ultrasonography of Right Jugular Veins, Guidance (ICD-10-PCS; 2017-02-05)
PROC: 0DJ08ZZ Inspection of Upper Intestinal Tract, Via Natural or Artificial Opening Endoscopic (ICD-10-PCS; 2017-02-06)
DX: K29.71 Gastritis, unspecified, with bleeding (principal); N17.0 Acute kidney failure with tubular necrosis; I50.43 Acute on chronic combined systolic (congestive) and diastolic (congestive) heart failure; E43 Unspecified severe protein-calorie malnutrition; Z68.41 Body mass index [BMI] 40.0-44.9, adult; N39.0 Urinary tract infection, site not specified; D62 Acute posthemorrhagic anemia; I42.9 Cardiomyopathy, unspecified; K25.9 Gastric ulcer, unspecified as acute or chronic, without hemorrhage or perforation; K28.9 Gastrojejunal ulcer, unspecified as acute or chronic, without hemorrhage or perforation; K21.9 Gastro-esophageal reflux disease without esophagitis; I48.2 Chronic atrial fibrillation; F41.8 Other specified anxiety disorders; E78.5 Hyperlipidemia, unspecified; E03.9 Hypothyroidism, unspecified; M19.90 Unspecified osteoarthritis, unspecified site; E66.01 Morbid (severe) obesity due to excess calories; Z99.81 Dependence on supplemental oxygen; M54.6 Pain in thoracic spine; M54.5 Low back pain; G89.29 Other chronic pain
CPT/HCPCS: 36556; 36600; 43235; 83880; 84439; C9113; J0171; J1170; J1200; J1450; J1610; J1642; J1940; J2060; J2175; J2185; J2250; J2270; J2310; J2354; J2405; J2765; J2916; J3010; J3490; J7030; J7050; J7613; J8597; P9016; Q0092; Q0163

== ENCOUNTER 2017-04-12 08:33 | Inpatient (IN) | payer OTHER ==
[~2017-04-12] VITALS: Ht 154.9 cm; Wt 95.8 kg
--- NOTE | 2017-04-12 08:51 | NUR ---
PER EMS PER FAMILY PT WOKE THIS AM WITH INCREASED ALOC AND GEN WEAK. FAMILY AND PT ARE [place] SPEAKING ONLY. PER EMS PT IS SUPPOSED TO BE DNR STATUS BUT DNR IS NOT FULLY FILLED OUT OR SIGNED BY PMD. FULL CODE AT THIS TIME. PT IS AROUSABLE TO LIGHT SHAKING AND BY NAME. WILL FOLLOW SIMPLE COMMANDS. PT ARRIVES AND APPEARS FATIGUED AND IS ORIENTED ONLY TO NAME. LUNGS HAVE CRACKLES AND WHEEZING IN THE BASES. FAMILY NOT PRESENT AT THIS TIME AND ASSESSMENT IS DIFFICULT TO COMPLETE WITHOUT PROPER HISTORIAN. DR SAMUELS AT BEDSIDE AT THIS TIME
[2017-04-12] MEDS ORDERED: PANTOPRAZOLE SO40 M1 PO (09:01)
[2017-04-12] MEDS ORDERED: PEPCID20 MG PO (09:01)
[2017-04-12] MEDS ORDERED: ZOFRAN8 MG PO (09:02)
[2017-04-12] MEDS ORDERED: BD LACTINEX1.4 MG PO (09:02)
[2017-04-12] MEDS ORDERED: DIFENIDOL PO (09:03)
--- NOTE | 2017-04-12 09:04 | NUR ---
MED REC COMPLETED USING TRAVEL CASE OF MEDS BROUGHT IN W/ PT.
--- NOTE | 2017-04-12 09:07 | NUR ---
BILAT NARES SWABBED FOR MRSA SCREENING. PURPLE SEPSIS CHECKLIST INITIATED.
[2017-04-12 09:38] LABS: RED CELL DISTRIBUTION WIDTH 15.9 % (11.5-14.5)
[2017-04-12 09:40] LABS: PLATELET COUNT 11 x10^3mcL (130-400)
[2017-04-12 09:47] LABS: ALKALINE PHOSPHATASE 110 U/L (46-116); ALT/SGPT 14 U/L (14-59); AST/SGOT 23 U/L (15-37); BILIRUBIN TOTAL 0.39 mg/dL (0.20-1.00); CALCIUM 8.2 mg/dL (8.5-10.1); CHLORIDE SERUM 92 mmol/L (98-107); CREATININE SERUM 0.5 mg/dL (0.6-1.0); GLUCOSE SERUM 122 mg/dL (74-106); SODIUM SERUM 139 mmol/L (136-145); TOTAL PROTEIN, SERUM 6.9 g/dL (6.4-8.2)
[2017-04-12 09:53] LABS: CARBON DIOXIDE 44.8 mmol/L (21-32); POTASSIUM SERUM 2.8 mmol/L (3.5-5.1)
--- NOTE | 2017-04-12 10:02 | NUR ---
PT LAYING SEMI FOWLERS WITH STABLE VITALS AND 0 S/S DISTRESS NOTED AT THIS TIME. WILL CONTINUE TO MONITOR
[2017-04-12 10:15] LABS: microscopic required? YES; urine erythrocyte 3+ (NEGATIVE)
[2017-04-12 10:48] LABS: BLAST 98 % (0); SEGMENTED NEUTROPHILS 2 % (37-75)
[2017-04-12 10:49] LABS: PLATELET MORPHOLOGY PLATELETS DECREASED; rbc morphology (normal/abnorm) ABNORMAL (NORMAL)
--- NOTE | 2017-04-12 11:38 | NUR ---
PT LAYING WITH EYES CLOSED BUT EASILY AROUSABLE TO NAME. WAITING FOR AVAILABLE BED ON FLOOR AT THIS TIME. VSS AND 0 S/S DISTRESS NOTED
--- NOTE | 2017-04-12 12:20 | NUR ---
REPORT GIVEN TO ARABELLA UNDERWOOD RN.
[2017-04-12 12:36] LABS: MAGNESIUM 1.5 mg/dL (1.8-2.4); PHOSPHOROUS 3.2 mg/dL (2.5-4.9)
[2017-04-12 12:42] LABS: T3 TOTAL 0.49 ng/mL
--- NOTE | 2017-04-12 12:50 | NUR ---
RESUMED CARE FOR Pt. FROM ED, Pt. LETHARGIC, OPENS EYES MAKES SOUNDS. RESPIRATIONS EVEN AND UNLABORED ON 10 L/MIN ON NON REBREATHER MASK. DIMINISHED LUNG SOUNDS NOTED. NO SIGNS OF PAIN/DISCOMFORT AT THIS TIME. PLACED ON TELE 33 AFIB. NS AT 100 ML/HR AND K RIDER INFUSING TO IV AT LEFT HAND PATENT AND INTACT. IV AT LEFT AC SALINE LOCKED, FLUSHES WELL AND PATENT. [place] CATHETER IN PLACE YELLOW URINE NOTED DRAINING VIA GRAVITY. CONTACT PRECAUTIONS IN PLACE. BED LOW/LOCKED. CALL LIGHT IN REACH. BED LOW/LOCKED.
[2017-04-12 13:09] VITALS: BP 139/65
[2017-04-12 13:15] VITALS: Ht 154.9 cm; Wt 95.8 kg
[2017-04-12 13:19] LABS: FREE T4 0.92 ng/dL (0.76-1.46); FREE THYROXINE INDEX 1.9 ug/dL (1.4-4.5); T4(THYROXINE) 5.4 ug/dL (4.7-13.3)
--- NOTE | 2017-04-12 13:38 | NUR ---
DR. NEGRETE NOTIFIED MAGNESIUM LEVEL 1.5
[2017-04-12 17:16] VITALS: BP 116/56
--- NOTE | 2017-04-12 18:09 | NUR ---
Pt. X 1 SMALL BM SOFT BLACK COLORED STOOL DR. NEGRETE AT BEDSIDE IS AWARE AND PERICARE RENDERED, Z GUARD APPLIED TO BUTTOCKS AND Pt. REPOSITIONED. Pt. CLEAN AND DRY AT THIS TIME.
--- NOTE | 2017-04-12 18:14 | NUR ---
Pt. MORE AWAKE, ALERT AND ORIENTED X 2 WITH FORGETFULNESS. C/O GENERALIZED BODY PAIN 7/10 SCALE, NORCO ADMINISTERED PO TOLERATED WELL. RESPIRATIONS EVEN AND UNLABORED O2 10 L/MIN VIA NONREBREATHER MASK. NO DISTRESS NOTED. TELE IN PLACE DENIES CHEST PAIN/PRESSURE. IVF RUNNING TO IV AT LEFT HAND PATENT AND INTACT. IV TO LEFT AC SALINE LOCKED. SCD AND AIR MATTRESS IN PLACE. [place] CATHETER CLOUDY YELLOW URINE NOTED. [place] CARE RENDERED. CONTACT PRECAUTIONS OBSERVED. BED LOW/LOCKED. CALL LIGHT IN REACH. Pt. AT BEDSIDE.
--- NOTE | 2017-04-12 19:55 | NUR ---
RECEIVED PT FROM PREVIOUS SHIFT NURSE. PT AOX4. TELE 33, AFIB, HR 104. DENIES CP/PRESSURE. PULSES PRESENT, BUE AND BLE EDEMA. LUNG SOUNDS DIMINISHED ON 10L NRB. DENIES SOB/DIFFICULTY BREATHING. AIR MATTRESS IN PLACE. EXCORIATION ON R. BUTTOCK, RLE RAISED RED DISCOLORATION. DISCOLORATION ON BUE AND BLE. LLQ ABD PAIN PUMP. IV IN LAC AND L.HAND INTACT AND PATENT. BED IN LOWEST POSITION. CALL LIGHT WITHIN REACH. WILL CONTINUE TO MONITOR.
[2017-04-12 21:59] VITALS: BP 126/53
--- NOTE | 2017-04-13 00:54 | NUR ---
FOUND PT RESTING IN BED WITH NONREBREATHER MASK OFF OF FACE, REMINDED PT TO KEEP MASK ON AT ALL TIMES. PT AGREED. WILL CONTINUE TO MONITOR. CALL LIGHT WITHIN REACH. WILL CONTINUE TO MONITOR.
[2017-04-13 01:27] VITALS: BP 110/53
[2017-04-13 04:56] VITALS: BP 121/63
[2017-04-13 07:22] LABS: CHLORIDE SERUM 93 mmol/L (98-107); CREATININE SERUM 0.4 mg/dL (0.6-1.0); GLUCOSE SERUM 98 mg/dL (74-106); MAGNESIUM 1.9 mg/dL (1.8-2.4); SODIUM SERUM 138 mmol/L (136-145)
[2017-04-13 07:28] LABS: CARBON DIOXIDE 43.4 mmol/L (21-32); POTASSIUM SERUM 2.5 mmol/L (3.5-5.1)
--- NOTE | 2017-04-13 08:00 | NUR ---
AWAKE,ALERT W/ PERIODS OF CONFUSION,ABLE TO VERBALIZED NEEDS.REQUIRES/ MOD.ASSIST. W/ ADL NEEDS.ON AIR MATRESS ,TURN Q 2 HRS FOR COMFORT.ON NONREBREATHER MASK 10 L RADHA. WELL. W/ R.T PROTOCOL. NO ACUTE RESP. DISTRESS NOTED.CONT. IV FLUIDS ORDERED.DENIES ANY PAIN.EXCORIATION RT. BUTTOCKS KEEP CLEAN AND DRY ON [place] CATH. PATENT DRAINING YELLOW COLOR URINE.MULTIPLE BRUISES AND DISCOLORATION ELO. UPPER AND LOWER EXTR.NON AMBULATORY.SR 4 X 2 WILL CONT. PLAN OF CARE.
--- NOTE | 2017-04-13 08:00 | NUR ---
DR. STEWART HERE AND MADE ROUNDS W/ OTHER MEDICAL STAFF AND UPDATED PT. PLAN OF CARE.
[2017-04-13 08:52] LABS: RED CELL DISTRIBUTION WIDTH 16.6 % (11.5-14.5)
[2017-04-13 08:55] LABS: PLATELET COUNT 10 x10^3mcL (130-400)
--- NOTE | 2017-04-13 09:00 | NUR ---
DR GIRON NOTIFIED REGARDING ALL THE ABNORMALS LAB RESULTS K-2.5 CO2- 43.4,PLATELATE 10,000,WBC 275.5 MADE AWARE W/ NEW ORDERS MADE AND CARRIED OUT.
[2017-04-13 09:30] VITALS: BP 126/63
[2017-04-13 09:42] VITALS: BP 126/63
[2017-04-13 11:01] LABS: BAND NEUTROPHIL 0 % (0-10); BASOPHIL 0 % (0-2); MONOCYTE 5 % (0-7); SEGMENTED NEUTROPHILS 5 % (37-75)
[2017-04-13 11:02] LABS: PLATELET MORPHOLOGY PLATELETS DECREASED; rbc morphology (normal/abnorm) ABNORMAL (NORMAL)
--- NOTE | 2017-04-13 13:00 | NUR ---
K- RIDER HANGED IN RT. HAND AND PT. RADHA. WELL. DENIES ANY PAIN AT THIS TIME. CALL LIGHT W/ IN REACH.
--- NOTE | 2017-04-13 15:00 | NUR ---
PT. NOTED HAS ELEVATED TEMP 100 AND C/O KU MEDICATED W/ TYLENOL ORDERED AND MADE COMFORTABLE IN BED. CALL LIGHT W/ IN REACH. NO ACUTE DISTRESS NOTED.
--- NOTE | 2017-04-13 16:00 | NUR ---
LEFT HAND IV WAS INFILTRATED D/C AND MOVE IV ACCESS TO LEFT AC.IV FLUIDS INFUSING WELL.NO ACUTE DISTRESS NOTED.
--- NOTE | 2017-04-13 17:39 | NUR ---
RE- CHECKED TEMP WAS 98.5. PT. DENIES ANY PAIN AT THIS TIME. CALL LIGHT W/ IN REACH.
--- NOTE | 2017-04-13 19:55 | NUR ---
RECEIVED PT FROM PREVIOUS SHIFT NURSE. PT AOX4. TELE # 33, AFIB, HR 91. DENIES CP/PRESSURE. PULSES PRESENT, BLE AND BUE EDEMA. LUNG SOUDNS DIMINISHED, ON 3L NC. DENIES SOB/DIFFICULTY BREATHING. BOWEL SOUNDS ACTIVE. [place] CATH IN PLACE, YELLOW OUTPUT NOTED. GENERALIZED WEAKNESS. AIR MATTRESS IN PLACE, NON AMBULATORY. EXCORIATION ON R. BUTTOCKS. DISCOLORATION TO BUE AND BLE. IV IN LAC, INTACT AND PATENT.
[2017-04-13 21:28] VITALS: BP 116/58
--- NOTE | 2017-04-14 01:51 | NUR ---
BLOOD AND SEDIMENT IN [place] BAG NOTED, DR. TUTTLE NOTIFIED. NO FURTHER ORDERS AT THIS TIME.
--- NOTE | 2017-04-14 02:22 | NUR ---
PT RESTING IN BED. NO ACUTE DISTRESS NOTED. REPOSITIONED FOR BETTER COMFORT. BED IN LOWEST POSITION. CALL LIGHT WITHIN REACH. WILL CONTINUE TO MONITOR.
[2017-04-14 05:29] VITALS: BP 115/55
[2017-04-14 06:08] LABS: BLAST 85 % (0)
[2017-04-14 06:36] LABS: CALCIUM 8.1 mg/dL (8.5-10.1); CARBON DIOXIDE 39.3 mmol/L (21-32); CHLORIDE SERUM 94 mmol/L (98-107); CREATININE SERUM 0.4 mg/dL (0.6-1.0); GLUCOSE SERUM 111 mg/dL (74-106); SODIUM SERUM 136 mmol/L (136-145)
[2017-04-14 07:46] LABS: POTASSIUM SERUM 2.2 mmol/L (3.5-5.1)
[2017-04-14 08:09] LABS: RED CELL DISTRIBUTION WIDTH 16.9 % (11.5-14.5)
[2017-04-14 08:11] LABS: PLATELET COUNT 11 x10^3mcL (130-400)
--- NOTE | 2017-04-14 08:45 | NUR ---
WAS MADE AWARE OF PT'S LATEST WHITE COUNT AND OTHER LAB RESULT. PRN PAIN MED WAS GIVEN COVERAGE
[2017-04-14 08:59] VITALS: BP 122/55
[2017-04-14 09:19] LABS: BAND NEUTROPHIL 0 % (0-10); BASOPHIL 0 % (0-2); BLAST 77 % (0); MONOCYTE 10 % (0-7); PLATELET MORPHOLOGY PLATELETS DECREASED; SEGMENTED NEUTROPHILS 8 % (37-75); rbc morphology (normal/abnorm) ABNORMAL (NORMAL)
--- NOTE | 2017-04-14 11:30 | NUR ---
PT'S ACCUCHECK SHOWED 97. NO COVERAGE NEEDED
[2017-04-14] MEDS ORDERED: BG FS (12:22)
[2017-04-14] MEDS ORDERED: DEXPF IV (12:23)
[2017-04-14] MEDS ORDERED: MOR2I IV (12:24)
[2017-04-14] MEDS ORDERED: APAP/HYDROCODON1 T13 PO (12:24)
[2017-04-14] MEDS ORDERED: TYL325 PO (12:25)
[2017-04-14] MEDS ORDERED: HUMULIN R100 U/1 M1 SC (12:25)
[2017-04-14] MEDS ORDERED: ZOFI IV (12:25)
[2017-04-14] MEDS ORDERED: ZOS3PM IV (13:01)
[2017-04-14] MEDS ORDERED: NS1000 IV (13:04)
[2017-04-14 13:10] VITALS: BP 106/64
--- NOTE | 2017-04-14 14:40 | NUR ---
CARDIZEM GIVEN AFTER EKG AND RECHECK OF BP. PER DR'S ORDER
--- NOTE | 2017-04-14 15:31 | NUR ---
PT ON BED, ASLEEP. WILL CONTINUE TO MONITOR
[2017-04-14 15:50] LABS: POTASSIUM SERUM 4.5 mmol/L (3.5-5.1)
[2017-04-14 15:55] LABS: ALBUMIN 2.6 g/dL (3.4-5.0)
[2017-04-14 16:46] VITALS: BP 129/65
--- NOTE | 2017-04-14 20:00 | NUR ---
AWAKE AND VERBALLY RESPONSIVE. ABLE TO MAKE ENEDS KNOWN. SKIN WARM ANDD RY TO TOUCH, RESPIRATION EVEN AND UNLABORED, FAMILY AT BEDSIDE VERY SUPPORTIVE OF PT' S PLAN OF CARE.
[2017-04-14 21:22] VITALS: BP 137/64
--- NOTE | 2017-04-15 00:10 | NUR ---
DR GALINDO CAME AND EXAMINED PT, TALKED TO FAMILY, STATED THEY PREFER PT TO BE ON HOSPICE. CALL LIGHT WITHIN REACH. ORAL FLUIDS WELL TOELRATED. NO S/S OF ASPIRATION NOTED.
--- NOTE | 2017-04-15 02:54 | NUR ---
PT C/O MODERATE GENERALIZED BODY PAIN ON SCALE 5/10, NORCO 7.5/325MG 1TAB GIVEN PO PRN MEDICATION. TURNED AND REPOSITIONED FOR COMFORT. PLACED PILLOWS FOR SUPPORT. WILL CONTINUE TO MONITOR.
[2017-04-15 05:37] VITALS: BP 144/70
--- NOTE | 2017-04-15 05:46 | NUR ---
CALM IN BED AT THIS TIME. REPOSITINED FOR COMFORT. CONTINUES ON ATB IVPB FOR MANAGEMENT OF UTI WITHOUT ADVERSE REACTION NOTED. MU[place] CATH DRAINIGN DARK TEA COLORED URINE. KEPT CLEAN AND DRY. ALL NEEDS ATTENDED.
--- NOTE | 2017-04-15 06:38 | NUR ---
TOTAL URINE OUTPUT VIA [place] CATH THE WHOLE SHIFT 1500CC BLOODY URINE OUTPUT. KEPT CLEAN AND DRY.
--- NOTE | 2017-04-15 08:00 | NUR ---
DR. STEWART WAS MADE AWARE OF PT'S LATEST K+ LEVEL.
[2017-04-15 08:10] LABS: RED CELL DISTRIBUTION WIDTH 16.5 % (11.5-14.5)
[2017-04-15 08:11] LABS: PLATELET COUNT 9 x10^3mcL (130-400)
[2017-04-15 08:13] LABS: CALCIUM 7.7 mg/dL (8.5-10.1); CHLORIDE SERUM 93 mmol/L (98-107); CREATININE SERUM 0.4 mg/dL (0.6-1.0); GLUCOSE SERUM 114 mg/dL (74-106); MAGNESIUM 1.1 mg/dL (1.8-2.4); PHOSPHOROUS 2.8 mg/dL (2.5-4.9); SODIUM SERUM 137 mmol/L (136-145)
[2017-04-15 08:24] LABS: CARBON DIOXIDE 40.4 mmol/L (21-32); POTASSIUM SERUM 1.9 mmol/L (3.5-5.1)
[2017-04-15 09:24] LABS: BAND NEUTROPHIL 0 % (0-10); BASOPHIL 0 % (0-2); BLAST 74 % (0); MONOCYTE 12 % (0-7); SEGMENTED NEUTROPHILS 6 % (37-75)
[2017-04-15 09:27] LABS: rbc morphology (normal/abnorm) ABNORMAL (NORMAL)
[2017-04-15 09:54] VITALS: BP 139/67
--- NOTE | 2017-04-15 12:00 | NUR ---
PT'S ACCUCHECK SHOWED 116. NO COVERAGE NEEDED
[2017-04-15 13:11] VITALS: BP 109/57
--- NOTE | 2017-04-15 16:02 | NUR ---
PT ON BED, ASLEEP. WITH FAMILY AT BEDSIDE
[2017-04-15 16:59] LABS: CALCIUM 7.5 mg/dL (8.5-10.1); CARBON DIOXIDE 38.6 mmol/L (21-32); CHLORIDE SERUM 94 mmol/L (98-107); CREATININE SERUM 0.5 mg/dL (0.6-1.0); GLUCOSE SERUM 119 mg/dL (74-106); POTASSIUM SERUM 4.9 mmol/L (3.5-5.1); SODIUM SERUM 133 mmol/L (136-145)
--- NOTE | 2017-04-15 16:59 | NUR ---
[facility] AT BEDSIDE
[2017-04-15 17:40] VITALS: BP 107/61
[2017-04-15 21:15] VITALS: BP 131/56
--- NOTE | 2017-04-15 21:32 | NUR ---
AWAKE AND RESPONSIVE TO STIMULI, SPANISGH SPEAKING ONLY, SON AT BEDSIDE VERY SUPPORTIVE OF OF PATIENT'S CIRRENT PLAN OF CARE. C/O GENERALIZED BODY PAIN ON SCALE 5/10, NORCO 7.5/325 1TAB PO GIVEN ORDERED. ORAL FLUIDS WELL TOELRATED WITHOUT ANY S/S OF ASPIRATION . WILL CONTINUE TO MONITOR.
--- NOTE | 2017-04-15 22:30 | NUR ---
EYES CLSOED, NO FACIAL GRIAMCING NOTED. RESPRIATION EVEN AND UNLABORED. NO S/S OF PAIN DISCOMFORT. TURNED AND RESPOITIONED WITH TOTAL ASSSIST. KEPT CLEAN AND DRY.
--- NOTE | 2017-04-16 03:36 | NUR ---
CONTINUES ON ATB IVPB FOR MANAGEMENT UTI WITHOUT ADVERSE REACTION NOTED. MAINTAINED ON CONTACT ISOLATION FOR MDRO/ESBL URINE. WILL CONTINUE TO MONITOR.
[2017-04-16 05:42] VITALS: BP 115/64
--- NOTE | 2017-04-16 05:43 | NUR ---
BLOOD TRVYD=536OA/DL, CONTINUES ON IVF NS AT 50M/HR . TOELRATED ORAL FLUIDS , NO S/S OF ASPIRATION NOTED. ALL DUE MEDICATIONS GIVEN. [place] CATH TO BSD STILL WITH BLOODY URINE OUTPUT. KEPT CLEAN AND DRY. NI DVERSE REACTION NOTED FROM ATB THERAPY. ALL NEEDS ATTENDED.
[2017-04-16 07:26] LABS: CALCIUM 7.7 mg/dL (8.5-10.1); CARBON DIOXIDE 38.8 mmol/L (21-32); CHLORIDE SERUM 95 mmol/L (98-107); CREATININE SERUM 0.4 mg/dL (0.6-1.0); GLUCOSE SERUM 121 mg/dL (74-106); PHOSPHOROUS 2.7 mg/dL (2.5-4.9); SODIUM SERUM 135 mmol/L (136-145)
[2017-04-16 07:29] LABS: POTASSIUM SERUM 2.8 mmol/L (3.5-5.1)
[2017-04-16 07:33] LABS: PLATELET COUNT 8 x10^3mcL (130-400)
[2017-04-16 09:12] LABS: BAND NEUTROPHIL 0 % (0-10); BASOPHIL 0 % (0-2); BLAST 78 % (0); MONOCYTE 8 % (0-7); PLATELET MORPHOLOGY PLATELETS DECREASED; SEGMENTED NEUTROPHILS 6 % (37-75); rbc morphology (normal/abnorm) ABNORMAL (NORMAL)
[2017-04-16 09:36] VITALS: BP 109/51
--- NOTE | 2017-04-16 10:50 | NUR ---
PT ON BED, AWAKE, ALERT, AND ORIENTED. HAS NO COMPLAINT OF PAIN, SOB, OR DIZZINESS. DIMINISHED ELO BASES ON 3LNC WITH SYMMETRICAL CHEST EXPANSION AND UNLABORED. ACTIVE BOWEL SOUNDS NOTED. NON DISTENDED ABDOMEN. F/C IN PLACE WITH BLOOD TINGED OUTPUT NOTED. MADE AWARE. DISCOLORATION NOTED ON THE BUE,BLE. EXCORIATION NOTED ON THE R BUTTOCKS. PT ON AIRMATTRESS. SIDE RAILS UP, CALL LIGHT WTIHIN REACH, WILL CONTINUE TO MONITOR. FAMILY AT BEDSIDE
[2017-04-16 14:21] VITALS: BP 109/51
--- NOTE | 2017-04-16 18:20 | NUR ---
TRNSPORTATION TEAM AT BEDSIDE. PREPARING PT TO BE TRANSFERRED TO HOME
== END 2017-04-16 18:37 | disposition hospice, home (50) | DRG 871 ==
LOC: ED 08:33 → DU 09:59
PROVIDERS: Emergency Medicine; ADMIT Family Medicine
DX: A41.9 Sepsis, unspecified organism (principal); I50.43 Acute on chronic combined systolic (congestive) and diastolic (congestive) heart failure; G93.41 Metabolic encephalopathy; N17.0 Acute kidney failure with tubular necrosis; N39.0 Urinary tract infection, site not specified; C92.Z0 Other myeloid leukemia not having achieved remission; I42.9 Cardiomyopathy, unspecified; E44.0 Moderate protein-calorie malnutrition; D61.818 Other pancytopenia; Z68.41 Body mass index [BMI] 40.0-44.9, adult; R65.20 Severe sepsis without septic shock; B96.20 Unspecified Escherichia coli [E. coli] as the cause of diseases classified elsewhere; I11.0 Hypertensive heart disease with heart failure; I48.2 Chronic atrial fibrillation; I73.9 Peripheral vascular disease, unspecified; I25.10 Atherosclerotic heart disease of native coronary artery without angina pectoris; E87.6 Hypokalemia; E83.42 Hypomagnesemia; E78.5 Hyperlipidemia, unspecified; M19.90 Unspecified osteoarthritis, unspecified site; F41.8 Other specified anxiety disorders; E03.9 Hypothyroidism, unspecified; E66.01 Morbid (severe) obesity due to excess calories; Z87.11 Personal history of peptic ulcer disease; Z16.12 Extended spectrum beta lactamase (ESBL) resistance; Z16.24 Resistance to multiple antibiotics; Z74.01 Bed confinement status
CPT/HCPCS: 83880; 84439; 85060; J0696; J2270; J2405; J2543; J3475; J3480; J7030; J7040; J7613; J8597; Q0092; Q0163